=== PATIENT | female | born 1975 | race Caucasian/White ===

== ENCOUNTER 2016-03-04 14:54 | Emergency (ER) | payer OTHER ==
[~2016-03-04] VITALS: Ht 177.8 cm; Wt 89.0 kg
[~2016-03-04 14:54] MED LIST: HYDR200T42 PO; IBUP800T23 PO; RANI1TAB5 PO; ROBA750T3 PO; SPIR50TA21 PO; Z.0.BCPILL PO
[2016-03-04 14:59] VITALS: BP 142/87; PULSE 87; RESP 16; TEMP 98.3; O2SAT 100
[2016-03-04] MEDS ORDERED: RESP: LIDOCAINE HCL 4% PF 5 ML NEB NEB ONE (15:15)
[2016-03-04] MEDS ORDERED: SODIUM CHLORIDE 0.9% FLUSH 5 ML FLUSH IVF PRN (15:15)
[2016-03-04] MEDS ORDERED: RESP: ALBUTEROL 2.5 MG/IPRATROPIUM 0.5 MG NEB (SCH) INH ONE (15:15)
--- NOTE | 2016-03-04 15:22 | PD ---
HPI Chief Complaint: Respiratory Symptoms Time Seen by Provider: 15:04 Travel History International Travel<30 days: No Contact w/Intl Traveler<30days: No Traveled to known affect area: No History of Present Illness HPI The patient is a 40-year-old female who presents to the emergency department for cough and cold symptoms of one week's duration. The patient states her symptoms started last Sunday with significant nasal drainage after visiting her mother. The patient was seen by her primary physician's office on Sunday and was diagnosed with an upper respiratory infection. The patient was prescribed prednisone. However, the patient's symptoms continued to progress. 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 The patient saw her primary physician on , Dr. Jay Pierce, who thought the patient's symptoms are secondary to a viral bronchitis. The patient was prescribed an inhaler. However, patient states her symptoms are progressing, she is complaining of increasing shortness of breath that is intermittent and associated with occasional chest tightness and epigastric abdominal pain. The patient states she took one dose of prednisone, however, she difficulty sleeping and has not taken the prednisone as prescribed since the first dose. The patient does have a history of lupus and is currently on Plaquenil and leflunomide. The patient denies any known history of pulmonary embolism, DVT, or acute coronary syndrome. The patient does state her blood pressure is been elevated this week, however, does state she took prednisone and has been taking antihistamines containing decongestions. PFSH Past Medical History Autoimmune Disease: Yes (LUPUS) Cardiovascular Problems: Yes (MITRAL VALVE REGURG, SYSTOLIC MURMUR, ) ?: Not LMP: LAST MONTH Past Surgical History Other Surgery: Yes (BREAST AUGMENTATION) Social History Alcohol Use: Yes (SOCIAL) Tobacco Use: No Substance Use: No Allergies-Medications (Allergen,Severity, Reaction): Coded Allergies: Sulfa (Verified Allergy, Intermediate, 03/04/16) Codeine (Verified Adverse Reaction, Mild, 03/04/16) Reported Meds & Prescriptions Reported Meds & Active Scripts Active Reported Xanax (Alprazolam) 1 Mg Tab 1 Mg PO HS PRN Ranitidine (Ranitidine HCl) 300 Mg Cap 300 Mg PO BID Azithromycin 250 Mg Tab 250 Mg PO DAILY Leflunomide 20 Mg Tab 20 Mg PO DAILY Plaquenil (Hydroxychloroquine Sulfate) 200 Mg Tab 200 Mg PO DAILY Take with food Lidocaine Viscous Liq 2 % Liqd 5 Ml SWISH-SWAL DIRECTED PRN Prednisone 20 Mg Tab 40 Mg PO DIRECTED Flonase Allergy Relief Children Nasal [place] (Fluticasone Nasal [place]) 50 Mcg/ Act [place] 2 [place] EACH NARE DAILY 50 mcg/spray Review of Systems Except as stated in HPI: all other systems reviewed are Neg General / Constitutional: No: Fever HENT: Positive: Sore Throat, No: Lightheadedness Cardiovascular: Positive: Chest Pain or Discomfort Respiratory: Positive: Shortness of Breath Gastrointestinal: Positive: Nausea, Abdominal Pain Genitourinary: No: Dysuria Musculoskeletal: Positive: Weakness Neurologic: Positive: Weakness Physical Exam Narrative GENERAL: Awake, alert, 40-year-old female who appears her stated age and is in no acute respiratory distress. SKIN: Warm and dry. HEAD: Atraumatic. Normocephalic. EYES: Pupils equal and round. No scleral icterus. No injection or drainage. ENT: No nasal bleeding or discharge. Cobblestoning present but no exudate. NECK: Trachea midline. No JVD. CARDIOVASCULAR: Regular rate and rhythm. No murmur appreciated. Heart rate in the 80s. RESPIRATORY: No accessory muscle use. Clear to auscultation. Breath sounds equal bilaterally. GASTROINTESTINAL: Abdomen soft, non-tender, nondistended. No rebound tenderness. MUSCULOSKELETAL: No obvious deformities. No clubbing. No cyanosis. No edema. NEUROLOGICAL: Awake and alert. No obvious cranial nerve deficits. Motor grossly within normal limits. Normal speech. PSYCHIATRIC: Appears anxious. Somewhat tearful at times when describing her symptoms. Data Data Last Documented VS Vital Signs Date Time Temp Pulse Resp B/P Pulse Ox O2 Delivery O2 Flow Rate FiO2 03/04/16 16:00 80 20 135/78 100 Room Air 03/04/16 14:59 98.3 Orders Complete Blood Count With Diff (03/04/16 15:14) Comprehensive Metabolic Panel (03/04/16 15:14) B-Type Natriuretic Peptide (03/04/16 15:14) D-Dimer (03/04/16 15:14) Act Partial Throm Time (Ptt) (03/04/16 15:14) Prothrombin Time / Inr (Pt) (03/04/16 15:14) Magnesium (Mg) (03/04/16 15:14) Ckmb (Isoenzyme) Profile (03/04/16 15:14) Troponin I (03/04/16 15:14) Influenzae A/B Antigen (03/04/16 15:14) Iv Access Insert/Monitor (03/04/16 15:14) Electrocardiogram (03/04/16 15:14) Ecg Monitoring (03/04/16 15:14) Oximetry (03/04/16 15:14) Oxygen Administration (03/04/16 15:14) Chest, Single Ap (03/04/16 15:14) Sodium Chloride 0.9% Flush (Ns Flush) (03/04/16 15:15) Albuterol-Ipratropium Neb (Duoneb Neb) (03/04/16 15:15) Lidocaine Pf 4% Neb (Lidocaine Pf 4% Neb (03/04/16 15:15) Dexamethasone Inj (Decadron Inj) (03/04/16 15:45) Potassium Chloride (Kcl) (03/04/16 16:00) Labs Laboratory Tests Test 03/04/16 15:25 White Blood Count 9.2 TH/MM3 Red Blood Count 4.42 MIL/MM3 Hemoglobin 13.7 GM/DL Hematocrit 39.9 % Mean Corpuscular Volume 90.2 FL Mean Corpuscular Hemoglobin 31.0 PG Mean Corpuscular Hemoglobin 34.4 % Concent Red Cell Distribution Width 12.9 % Platelet Count 235 TH/MM3 Mean Platelet Volume 10.1 FL Neutrophils (%) (Auto) 56.7 % Lymphocytes (%) (Auto) 31.8 % Monocytes (%) (Auto) 7.6 % Eosinophils (%) (Auto) 0.3 % Basophils (%) (Auto) 3.6 % Neutrophils # (Auto) 5.3 TH/MM3 Lymphocytes # (Auto) 2.9 TH/MM3 Monocytes # (Auto) 0.7 TH/MM3 Eosinophils # (Auto) 0.0 TH/MM3 Basophils # (Auto) 0.3 TH/MM3 CBC Comment DIFF FINAL Differential Comment Prothrombin Time 10.0 SEC Prothromb Time International 0.9 RATIO Ratio Activated Partial 21.2 SEC Thromboplast Time D-Dimer Quantitative (PE/DVT) 0.19 MG/L FEU Sodium Level 142 MEQ/L Potassium Level 3.2 MEQ/L Chloride Level 109 MEQ/L Carbon Dioxide Level 22.4 MEQ/L Anion Gap 11 MEQ/L Blood Urea Nitrogen 9 MG/DL Creatinine 0.96 MG/DL Estimat Glomerular Filtration 64 ML/MIN Rate Random Glucose 87 MG/DL Calcium Level 8.2 MG/DL Magnesium Level 2.4 MG/DL Total Bilirubin 0.4 MG/DL Aspartate Amino Transf 22 U/L (AST/SGOT) Alanine Aminotransferase 18 U/L (ALT/SGPT) Alkaline Phosphatase 66 U/L Total Creatine Kinase 68 U/L Troponin I LESS THAN 0.02 NG/ML B-Type Natriuretic Peptide 21 PG/ML Total Protein 7.3 GM/DL Albumin 3.5 GM/DL [facility] Medical Decision Making Medical Screen Exam Complete: Yes Emergency Medical Condition: Yes Medical Record Reviewed: Yes Interpretation(s) EKG reveals normal sinus rhythm with a rate of 75. No ischemic changes or ectopy noted. No evidence pericarditis. Date/Time Procedure Status Source Growth 03/04/16 15:25 Influenza Types A,B Antigen (SHAHANA) - Final Complete Nasal Aspirate NEGATIVE FOR FLU A AND B ANTIGEN.... Laboratory Tests Test 03/04/16 15:25 White Blood Count 9.2 TH/MM3 Red Blood Count 4.42 MIL/MM3 Hemoglobin 13.7 GM/DL Hematocrit 39.9 % Mean Corpuscular Volume 90.2 FL Mean Corpuscular Hemoglobin 31.0 PG Mean Corpuscular Hemoglobin 34.4 % Concent Red Cell Distribution Width 12.9 % Platelet Count 235 TH/MM3 Mean Platelet Volume 10.1 FL Neutrophils (%) (Auto) 56.7 % Lymphocytes (%) (Auto) 31.8 % Monocytes (%) (Auto) 7.6 % Eosinophils (%) (Auto) 0.3 % Basophils (%) (Auto) 3.6 % Neutrophils # (Auto) 5.3 TH/MM3 Lymphocytes # (Auto) 2.9 TH/MM3 Monocytes # (Auto) 0.7 TH/MM3 Eosinophils # (Auto) 0.0 TH/MM3 Basophils # (Auto) 0.3 TH/MM3 CBC Comment DIFF FINAL Differential Comment Prothrombin Time 10.0 SEC Prothromb Time International 0.9 RATIO Ratio Activated Partial 21.2 SEC Thromboplast Time D-Dimer Quantitative (PE/DVT) 0.19 MG/L FEU Sodium Level 142 MEQ/L Potassium Level 3.2 MEQ/L Chloride Level 109 MEQ/L Carbon Dioxide Level 22.4 MEQ/L Anion Gap 11 MEQ/L Blood Urea Nitrogen 9 MG/DL Creatinine 0.96 MG/DL Estimat Glomerular Filtration 64 ML/MIN Rate Random Glucose 87 MG/DL Calcium Level 8.2 MG/DL Magnesium Level 2.4 MG/DL Total Bilirubin 0.4 MG/DL Aspartate Amino Transf 22 U/L (AST/SGOT) Alanine Aminotransferase 18 U/L (ALT/SGPT) Alkaline Phosphatase 66 U/L Total Creatine Kinase 68 U/L Troponin I LESS THAN 0.02 NG/ML B-Type Natriuretic Peptide 21 PG/ML Total Protein 7.3 GM/DL Albumin 3.5 GM/DL Differential Diagnosis Differential diagnosis includes bronchitis, influenza, pneumonia, reactive airway disease, pericardial effusion, pericarditis, pulmonary embolism, pleural effusion, congestive heart failure, acute coronary syndrome. Narrative Course IV was established, labs were drawn and sent, and the patient was placed on cardiac telemetry monitoring and continuous pulse oximetry monitoring. EKG was ordered and interpreted. Chest x-ray was ordered. D-dimer was sent to lab. The patient was administered DuoNeb and Decadron 4 mg intravenously. Chest x- ray was negative. EKG is unremarkable. The patient's troponin and CPK are unremarkable, no evidence of myocarditis. Chest x-ray was unremarkable, no evidence of significant in cardiac enlargement, I doubt significant or cardial effusion. D-dimer is negative, therefore, no indication for CT pulmonary angiogram. The patient continues to have viral and cold-like symptoms, but there is no other source of obvious infection. The patient is advised to follow -up with Dr. Jay Pierce, she may benefit from outpatient echocardiogram if symptoms persist. Patient will be given a work excuse for 3 days in a copy of her x-ray results and lab results at discharge. Diagnosis Primary Impression: Dyspnea Qualified Code: R06.00 - Dyspnea, unspecified type Additional Impression: Viral syndrome Patient Instructions: General Instructions Additional Instructions: Please provide the patient a copy of her labs and x-ray results at discharge. Follow-up with her primary physician on Sunday. Work excuse for 3 days. Disposition: DISCHARGE HOME Condition: Stable Familia Matias MD Mar 04, 2016 15:22
[2016-03-04 15:28] VITALS: O2SAT 100
[2016-03-04 15:32] LABS: AUTOMATED NEUTROPHIL # 5.3 TH/MM3 (1.8-7.7); BASOPHIL # 0.3 TH/MM3 (0-0.2); BASOPHIL % 3.6 % (0.0-2.0); EOSINOPHIL % 0.3 % (0.0-4.0); HEMATOCRIT 39.9 % (35.0-46.0); HEMO FLAGS DIFF FINAL; LYMPH % 31.8 % (9.0-44.0); LYMPHOCYTE # 2.9 TH/MM3 (1.0-4.8); MEAN CELL VOLUME 90.2 FL (80.0-100.0); MEAN CORPUSCULAR HGB CONC 34.4 % (32.0-36.0); MONO % 7.6 % (0.0-8.0); NEUT % 56.7 % (16.0-70.0); PLATELET COUNT 235 TH/MM3 (150-450); RED BLOOD COUNT 4.42 MIL/MM3 (4.00-5.30); RED CELL DISTRIBUTION WIDTH 12.9 % (11.6-17.2); WHITE BLOOD COUNT 9.2 TH/MM3 (4.0-11.0)
[2016-03-04 15:39] LABS: CHLORIDE 109 MEQ/L (98-107); POTASSIUM 3.2 MEQ/L (3.5-5.1); SODIUM (NA) 142 MEQ/L (136-145)
[2016-03-04 15:43] LABS: ANION GAP 11 MEQ/L (5-15); BICARBONATE 22.4 MEQ/L (21.0-32.0); BLOOD UREA NITROGEN 9 MG/DL (7-18); MAGNESIUM 2.4 MG/DL (1.5-2.5)
[2016-03-04] MEDS ORDERED: XANA1TAB2 PO (15:43)
[2016-03-04] MEDS ORDERED: FLUT1SPR9 EACH NARE (15:43)
[2016-03-04] MEDS ORDERED: LEFL1TAB3 PO (15:43)
[2016-03-04] MEDS ORDERED: RANI300C PO (15:43)
[2016-03-04] MEDS ORDERED: LIDO1SOL8 SWISH-SWAL (15:43)
[2016-03-04] MEDS ORDERED: PRED20 PO (15:43)
[2016-03-04] MEDS ORDERED: PLAQ200T PO (15:43)
[2016-03-04] MEDS ORDERED: AZIT250T3 PO (15:43)
--- NOTE | 2016-03-04 15:43 | RADHPO ---
EXAM DATE/TIME: 03/04/2016 15:24 [facility] COMPARISON: No previous studies available for comparison. INDICATIONS : Short of breath MEDICAL HISTORY : None. SURGICAL HISTORY : None. ENCOUNTER: Initial ACUITY: 1 day PAIN SCORE: 0/10 LOCATION: Bilateral chest FINDINGS: A single view of the chest demonstrates the lungs to be symmetrically aerated without evidence of mas s, infiltrate or effusion. The cardiomediastinal contours are unremarkable. Osseous structures are intact. CONCLUSION: The lungs are clear. Zen Pabon MD on March 04, 2016 at 15:41 Board Certified Radiologist. This report was verified electronically.
[2016-03-04] MEDS ORDERED: DEXAMETHASONE SOD PHOS 4 MG/ML VIAL IV PUSH ONE (15:45)
[2016-03-04 15:46] LABS: ALT (GPT) 18 U/L (10-53); AST (GOT) 22 U/L (15-37); GLOMERULAR FILTRATION RATE 64 ML/MIN (>89)
[2016-03-04 15:47] LABS: TOTAL BILIRUBIN ADULT 0.4 MG/DL (0.2-1.0)
[2016-03-04 15:49] LABS: ALKALINE PHOSPHATASE 66 U/L (45-117)
[2016-03-04 15:59] LABS: APTT (PATIENT) 21.2 SEC (24.3-30.1); INTERNATIONAL NORMALIZED RATIO 0.9 RATIO
[2016-03-04 16:00] VITALS: BP 135/78; PULSE 80; RESP 20; O2SAT 100
[2016-03-04] MEDS ORDERED: POTASSIUM CHLORIDE 20 MEQ CONTROLLED RELEASE TAB PO ONE (16:00)
[2016-03-04 16:01] LABS: CREATINE KINASE 68 U/L (26-192)
[2016-03-05] MEDS ORDERED: DEXAMETHASONE SOD PHOS 4 MG/ML VIAL IV PUSH SCH (09:00)
--- NOTE | 2016-03-05 13:16 | EKG ---
Date Performed: 03/04/2016 Time Performed: 15:24:40 PTAGE: 40 years EKG: Sinus rhythm Normal ECG Compared to prior tracing no significant change PREVIOUS TRACING : 05/09/2013 10.06 DOCTOR: Demetrio Tierney Interpretating Date/Time 03/05/2016 13:13:18
== END 2016-03-04 16:24 | disposition home or self-care (01) ==
LOC: PHED 14:54
DX: R06.00 Dyspnea, unspecified (principal); B34.9 Viral infection, unspecified; R06.02 Shortness of breath; R10.13 Epigastric pain; M32.9 Systemic lupus erythematosus, unspecified
CPT/HCPCS: 71010; 80053; 82550; 83735; 83880; 84484; 85025; 85379; 85610; 85730; 87804; 93005; 94664; 96374; 99284; J1100

== ENCOUNTER 2017-06-29 13:02 | Emergency (ER) | payer OTHER ==
[~2017-06-29] VITALS: Ht 177.8 cm; Wt 95.7 kg
[~2017-06-29 13:02] MED LIST changes: +AZIT250T3 PO; +FLUT1SPR9 EACH NARE; -HYDR200T42 PO; -IBUP800T23 PO; +LEFL1TAB3 PO; +LIDO1SOL8 SWISH-SWAL; +PLAQ200T PO; +PRED20 PO; -RANI1TAB5 PO; +RANI300C PO; -ROBA750T3 PO; -SPIR50TA21 PO; +XANA1TAB2 PO; -Z.0.BCPILL PO
[2017-06-29 13:04] VITALS: BP 209/94; PULSE 103; RESP 18; TEMP 98.4; O2SAT 97
[2017-06-29] MEDS ORDERED: CYCL10TA PO (13:18)
--- NOTE | 2017-06-29 13:25 | PD ---
HPI Chief Complaint: Back/ Neck Pain or Injury Time Seen by Provider: 13:12 Travel History International Travel<30 days: No Contact w/Intl Traveler<30days: No Traveled to known affect area: No History of Present Illness HPI 42-year-old female presents to the emergency department of low back pain/left buttock pain after a slip and fall that occurred on Sunday, 6 days ago. Patient states she was walking down her stairs when she slipped and fell landing on her buttocks. Patient reports 10/10 pain, worse with sitting down and ambulation. Alleviating factors standing up and still. Patient reports history of lupus. Patient denies any head injury or LOC. No neck pain. No chest pain or abdominal pain. No other symptoms or complaints at this time. Moderate severity. Patient denies any chance of PFSH Past Medical History Arthritis: Yes Autoimmune Disease: Yes (LUPUS) Cardiovascular Problems: Yes (MITRAL VALVE REGURG, SYSTOLIC MURMUR, ) Diminished Hearing: No Tetanus Vaccination: > 5 Years Influenza Vaccination: Yes ?: Not Past Surgical History Other Surgery: Yes (BREAST AUGMENTATION) Social History Alcohol Use: Yes (rarely) Tobacco Use: No Substance Use: No Allergies-Medications (Allergen,Severity, Reaction): Coded Allergies: tramadol (Verified Allergy, Severe, Chest Pain, 06/29/17) Sulfa (Sulfonamide Antibiotics) (Unverified Allergy, Intermediate, 06/29/17 ) codeine (Unverified Adverse Reaction, Mild, 06/29/17) Reported Meds & Prescriptions Reported Meds & Active Scripts Active Reported Flexeril (Cyclobenzaprine HCl) 10 Mg Tab 10 Mg PO DIRECTED Xanax (Alprazolam) 1 Mg Tab 1 Mg PO HS PRN Ranitidine (Ranitidine HCl) 300 Mg Cap 300 Mg PO BID Leflunomide 20 Mg Tab 20 Mg PO DAILY Plaquenil (Hydroxychloroquine Sulfate) 200 Mg Tab 200 Mg PO DAILY Take with food Prednisone 20 Mg Tab 40 Mg PO DIRECTED Review of Systems Except as stated in HPI: all other systems reviewed are Neg Physical Exam Narrative GENERAL: Well-nourished, well-developed female patient, ambulatory. Afebrile. SKIN: Focused skin assessment warm/dry. Patient has ecchymosis over the left buttock. Tissues are soft without evidence of compartment syndrome. HEAD: Normocephalic. Atraumatic. EYES: No scleral icterus. No injection or drainage. NECK: Supple, trachea midline. No JVD or lymphadenopathy. CARDIOVASCULAR: Regular rate and rhythm without murmurs, gallops, or rubs. RESPIRATORY: Breath sounds equal bilaterally. No accessory muscle use. Lung sounds are clear to auscultation. GASTROINTESTINAL: Abdomen soft, non-tender, nondistended. MUSCULOSKELETAL: No cyanosis, or edema. Bilateral upper and lower extremity strength 5/5. All extremities are neurovascularly intact. BACK: Nontender without obvious deformity. No CVA tenderness. Patient has tenderness to palpation or midline lumbar spine. Data Data Last Documented VS Vital Signs Date Time Temp Pulse Resp B/P (MAP) Pulse Ox O2 Delivery O2 Flow Rate FiO2 06/29/17 14:16 153/75 (101) 06/29/17 13:04 98.4 103 18 97 Orders Orders Spine, Lumbar - Ltd (Ap & Lat) (06/29/17 ) Pelvis, Ap Only (Routine) (06/29/17 ) Ketorolac Inj (Toradol Inj) (06/29/17 13:30) Orphenadrine Inj (Norflex Inj) (06/29/17 13:30) MDM Medical Decision Making Medical Screen Exam Complete: Yes Emergency Medical Condition: Yes Medical Record Reviewed: Yes Interpretation(s) Last Impressions Pelvis X-Ray 06/29/17 0000 Signed Impressions: CONCLUSION: Negative examination. Lumbar Spine X-Ray 06/29/17 0000 Signed Impressions: CONCLUSION: Mild scoliosis and degenerative change. No acute bony findings. Differential Diagnosis Contusion versus fracture versus sciatica Narrative Course 42-year-old female presents to the emergency department for evaluation of low back pain and left buttock pain after a slip and fall 6 days ago. X-ray of the lumbar spine and pelvis are ordered and pending. Patient is given Toradol 60 mg IM, Norflex 60 mg IM. X-ray of the lumbar shows no acute fracture. X-ray of the pelvis is negative. Blood pressure recheck is 153/75. Patient will be discharged with a prescription for ibuprofen and Robaxin. She is encouraged ice and follow with her primary care physician. She is return here for any acute worsening of symptoms. The patient was discharged in stable condition with instructions, including return instructions and follow up instructions. Diagnosis Primary Impression: Low back pain Qualified Codes: M54.5 - Low back pain Additional Impression: Contusion Qualified Codes: S30.0XXA - Contusion of lower back and pelvis, initial encounter Referrals: Primary Care Physician call for appointment Patient Instructions: Acute Low Back Pain (ED), General Instructions Additional Instructions: Take Ibuprofen as directed as needed with food for pain. Take Robaxin as directed as needed. Ice for 20 mins 4-5 times daily. Follow-up with a primary care physician. Return to the emergency department for any acute worsening of symptoms. Med/Other Pt SpecificInfo: Prescription(s) given Scripts Methocarbamol (Robaxin) 750 Mg Tab 750 MG PO TID Y for MUSCLE SPASM, #21 TAB 0 Refills Prov: Magui Felix 06/29/17 Ibuprofen (Ibuprofen) 800 Mg Tab 800 MG PO TID Y for PAIN SCALE 1 TO 10, #21 TAB 0 Refills Prov: Magui Felix 06/29/17 Disposition: 01 DISCHARGE HOME Condition: Stable Magui Felix June 29, 2017 13:25
[2017-06-29] MEDS ORDERED: KETOROLAC TROMETHAMINE 60 MG/2 ML (IM) VIAL IM ONE (13:30)
[2017-06-29] MEDS ORDERED: ORPHENADRINE INJ 60 MG/2 ML AMP IM ONE (13:30)
--- NOTE | 2017-06-29 13:52 | RADRPT ---
EXAM DATE: 06/29/2017 1:48 PM EDT AGE/SEX: 42 years / Female INDICATIONS: Low back pain post fall. CLINICAL DATA: This is the patient's initial encounter. Patient reports that signs and symptoms have been present for 4 - 6 days and indicates a pain score of 10/10. MEDICAL/SURGICAL HISTORY: None. None. COMPARISON: No prior [facility] exams available for comparison. FINDINGS: Examination of the pelvis demonstrates no evidence of fracture or dislocation. Bony mineralization i s normal. There is no widening of the sacroiliac joints. No foreign body is identified. CONCLUSION: Negative examination. Electronically signed by: Miguel Quevedo MD 06/29/2017 1:50 PM EDT
--- NOTE | 2017-06-29 13:53 | RADRPT ---
EXAM DATE: 06/29/2017 1:46 PM EDT AGE/SEX: 42 years / Female INDICATIONS: Back pain post fall. CLINICAL DATA: This is the patient's initial encounter. Patient reports that signs and symptoms have been present for 4 - 6 days and indicates a pain score of 10/10. MEDICAL/SURGICAL HISTORY: None. None. COMPARISON: No prior [facility] exams available for comparison. FINDINGS: There is mild right convex lumbar scoliosis. No evidence of spondylolisthesis. Disc space narrowing m ost notably at L4-5 with mild endplate osteophyte formation. No evidence of fracture or destructive c hange. CONCLUSION: Mild scoliosis and degenerative change. No acute bony findings. Electronically signed by: Miguel Quevedo MD 06/29/2017 1:51 PM EDT
[2017-06-29 14:16] VITALS: BP 153/75
[2017-06-29] MEDS ORDERED: IBUP1TAB7 PO (14:19)
[2017-06-29] MEDS ORDERED: ROBA750T PO (14:19)
== END 2017-06-29 14:25 | disposition home or self-care (01) ==
LOC: PHEFT 13:02
DX: M54.5 Low back pain (principal); S30.0XXA Contusion of lower back and pelvis, initial encounter; W10.9XXA Fall (on) (from) unspecified stairs and steps, initial encounter; M32.9 Systemic lupus erythematosus, unspecified; M19.90 Unspecified osteoarthritis, unspecified site; Z88.2 Allergy status to sulfonamides; Z88.5 Allergy status to narcotic agent; Z79.899 Other long term (current) drug therapy
CPT/HCPCS: 72100; 72170; 96372; 99283; J1885; J2360; 90472